=== PATIENT | female | born 1995 | race American Indian/Alaskan Native ===

== ENCOUNTER 2019-07-09 15:08 | Emergency (ER) | payer SELFPAY ==
[2019-07-09 15:57] VITALS: BP 119/67
--- NOTE | 2019-07-09 17:04 | XRay Report ---
CHEST 2 VIEWS INDICATION / CLINICAL INFORMATION: CP. COMPARISON: None available. FINDINGS: SUPPORT DEVICES: None. HEART / MEDIASTINUM: No significant abnormality. LUNGS / PLEURA: No significant pulmonary or pleural abnormality. .No pneumothorax. ADDITIONAL FINDINGS: No significant additional findings. IMPRESSION: 1. No acute findings. Signer Name: Matty Kang MD Signed: 07/09/2019 5:00 PM Workstation Name: [id number]
--- NOTE | 2019-07-09 17:29 | Event Note ---
ED Screening Note ED Screening Note: This initial assessment/diagnostic orders/clinical plan/treatment(s) is/are subject to change based on patients health status, clinical progression and re- assessment by fellow clinical providers in the ED. Further treatment and workup at subsequent clinical providers discretion. Patient/guardian urged not to elope from the ED as their condition may be serious if not clinically assessed and managed. Initial orders include: 24yo BF states that she R side CP that penetrates to her R posterior shoulder blade. She states that laying down makes her chest pain feel worse.
== END 2019-07-09 18:00 | disposition left against medical advice (07) ==
LOC: ED 15:08
DX: R07.89 Other chest pain (principal); Z53.21 Procedure and treatment not carried out due to patient leaving prior to being seen by health care provider
CPT/HCPCS: 71046; 93005; 93010